=== PATIENT | female | born 1965 | race Caucasian/White ===

== ENCOUNTER 2021-12-03 18:51 | Emergency (ER) | payer BC ==
[2021-12-03] MEDS ORDERED: LORazepam 2 MG/ML SDV IM ONE (19:03)
== END 2021-12-03 19:45 | disposition home or self-care (01) ==
LOC: LL.ED 18:51
DX: F41.9 Anxiety disorder, unspecified (principal); R45.1 Restlessness and agitation; Z79.899 Other long term (current) drug therapy
CPT/HCPCS: 96372; 99283; 99284; J2060

== ENCOUNTER 2021-12-05 15:45 | Emergency (ER) | payer BC ==
[2021-12-05] MEDS ORDERED: LORazepam 1 MG Tab PO ONE (16:26)
[2021-12-05] MEDS ORDERED: Aspirin 81 MG Tab.Chew PO ONE (16:59)
[2021-12-05] MEDS ORDERED: Sodium Chloride 0.9% 10 ML Syringe FLUSH PRN (16:59)
[2021-12-05 18:01] LABS: ANION GAP 13.4 meq/L (7-15)
[2021-12-05] MEDS ORDERED: hydrOXYzine Pamoate 25 MG Cap PO ONE (18:39)
== END 2021-12-05 19:25 | disposition home or self-care (01) ==
LOC: LL.ED 15:45
DX: F41.9 Anxiety disorder, unspecified (principal); Z87.891 Personal history of nicotine dependence
CPT/HCPCS: 36415; 80053; 83735; 84484; 85025; 93005; 99283-25; A9270-GY; Q0177

== ENCOUNTER 2022-07-04 10:22 | Day surgery (SDC) | payer BC ==
[~2022-07-04 10:22] MED LIST: Midazolam 1 MG/ML 2 ML SDV ONE; Propofol 200 MG/20 ML SDV ONE
[2022-07-04] MEDS ORDERED: Sodium Chloride 0.9% 10 ML Syringe FLUSH PRN (11:00)
[2022-07-04] MEDS: Lactated Ringers 1,000 ML IV SCH (11:20)
== END 2022-07-04 14:10 | disposition home or self-care (01) ==
LOC: LL.SDS 10:22
PROVIDERS: ATTEND Surgery
DX: Z12.11 Encounter for screening for malignant neoplasm of colon (principal); I10 Essential (primary) hypertension; F32.A Depression, unspecified; R73.01 Impaired fasting glucose; E88.81 Metabolic syndrome and other insulin resistance; F32.5 Major depressive disorder, single episode, in full remission; E66.01 Morbid (severe) obesity due to excess calories; E78.5 Hyperlipidemia, unspecified; Z68.42 Body mass index [BMI] 45.0-49.9, adult
CPT/HCPCS: J2250; J2704; J7120